=== PATIENT | male | born 1990 | race Caucasian/White ===

== ENCOUNTER 2022-07-29 00:54 | Day surgery (SDC) | payer OTHER, SELFPAY ==
[2022-07-24 09:06] VITALS: BMI 27.2
[2022-07-29 07:32] VITALS: BP 116/69; PULSE 69; RESP 16; TEMP 36.3; O2SAT 99; BMI 26.7
[2022-07-29] MEDS: LACTATED RINGERS 1,000 ML 150 ML IV CONT (07:53)
--- NOTE | 2022-07-29 08:17 | WPDANESEPPF ---
Anes - Initial Pre Proc Eval Procedure: Operation Date: 07/29/22 08:30 Proposed Procedures p Colonoscopy - Kareem Rogers MD Date/Time: 07/29/22 08:17 Surgeon: Kareem Rogers MD Pre Op Diagnosis: melena Patient Data Age: 31 Gender: M Height: 1.98 m Weight: 105.1 kg Last Vital Signs Temp 97.4 F L 07/29/22 07:32 Pulse 69 07/29/22 07:32 Resp 16 07/29/22 07:32 BP 116/69 07/29/22 07:32 Pulse Ox 99 07/29/22 07:32 O2 Del Method Room Air 07/29/22 07:32 Allergies Allergy/AdvReac Type Severity Reaction Status Date / Time amoxicillin Allergy Unknown Unknown Verified 07/29/22 07:32 Home Medications Medication Instructions Recorded Confirmed Type No Home Medications 07/17/22 07/29/22 History Patient hx anesthesia problems: none Family hx anesthesia problems: none Results Review: All pre-operative results and documents have been reviewed as part of the pre-operative evaluation. [facility] Family History Family History (Updated 07/17/22 @ 15:52 by Rebeca Rivas) Father Diabetes mellitus Hypertension Heart disease Mother Alcoholism Social History Social History (Updated 07/17/22 @ 15:56 by Rebeca Rivas) Social History: Caffeine-soda daily Smoking status: Former smoker Tobacco type: e-cigarettes/vaping Additional smoking assessment comments: vapes nicotine, trying to quit Alcohol intake: current Drinks per week: 4 Alcohol use details: [place]/liquor Substance use: never Substance use type: does not use Living arrangements: with friend(s) Additional living arrangements comments: lives with girlfriend Spiritual care concerns: No Agree to blood products: Yes Anes - Eval Final PreProcedure Day of Procedure 07/29/22 08:17 Patient weight: normal Heart: regular rate and rhythm Lungs: clear to auscultation Airway: Mallampati scale class II Neurological: alert and oriented Last oral intake: >/= 8 hours ASA classification: II Emergent: no Anesthetic plan: proceed Anesthesia type and monitoring: general GIVS and standard monitoring Results Review: All pre-operative results and documents have been reviewed as part of the pre-operative evaluation. Informed Consent: The patient's anesthetic plan and its attendant risks and benefits were discussed with the patient/family/POA. Questions were solicited and answers provided to the satisfaction of the patient/family/POA.
--- NOTE | 2022-07-29 08:17 | PM.HPGS ---
History of Present Illness History of Present Illness Consent: Risks, benefits, and alternatives have been discussed and questions answered. Patient agrees to proceed with procedure. Chief complaint: melena Narrative: Sunny Sarah is a 31 year old male with intermittent rectal bleed, never had colonoscopy Review of Systems Constitutional: Constitutional: Denies headache(s) and Denies weakness Eyes: Eyes: Denies blurry vision ENT: Reports Normal hearing present, Denies headache(s) and Denies neck pain Cardiovascular: Cardiovascular: Denies chest pain and Denies dyspnea Respiratory: Respiratory: Denies dyspnea Gastrointestinal: Gastrointestinal: Reports no additional gastrointestinal complaints Genitourinary: Genitourinary: Denies dysuria Musculoskeletal: Musculoskeletal: Denies neck pain Integumentary/Breasts: Skin/Breast: Denies dry skin Neurologic: Reports Normal hearing present, Denies headache(s) and Denies weakness Psychiatric: Psychiatric: Denies anxiety Endocrine: Endocrine: Denies change in body appearance Hematologic/Lymphatic: Hematologic/Lymphatic: Denies easy bleeding Allergic/Immunologic: Allergic/Immunologic: Denies urticaria [facility] Family History Family History (Updated 07/17/22 @ 15:52 by Rebeca Rivas) Father Diabetes mellitus Hypertension Heart disease Mother Alcoholism Social History Social History (Updated 07/17/22 @ 15:56 by Rebeca Rivas) Social History: Caffeine-soda daily Smoking status: Former smoker Tobacco type: e-cigarettes/vaping Additional smoking assessment comments: vapes nicotine, trying to quit Alcohol intake: current Drinks per week: 4 Alcohol use details: [place]/liquor Substance use: never Substance use type: does not use Living arrangements: with friend(s) Additional living arrangements comments: lives with girlfriend Spiritual care concerns: No Agree to blood products: Yes Meds Home Medications and Allergies Home Medications Medication Instructions Recorded Confirmed Type No Home Medications 07/17/22 07/29/22 History Allergies Allergy/AdvReac Type Severity Reaction Status Date / Time amoxicillin Allergy Unknown Unknown Verified 07/29/22 07:32 Vital Signs Vital Signs - 24 hr 07/29/22 07:32 Temperature 97.4 F L Pulse Rate 69 Respiratory Rate 16 Blood Pressure 116/69 Pulse Oximetry 99 Oxygen Delivery Room Air Exam Const: General: comfortable and no acute distress HENMT: General nose exam: Normal nares present Eyes: General: appearance normal, both eyes and all related structures Neck: Neck: no JVD Resp: Auscultation: clear to auscultation bilaterally Cardio: Rate: regular rate Rhythm: regular rhythm GI: Inspection: non-distended GI Palp: Yes Soft to palpation Skin: General skin exam: normal color Neuro: General: gait normal Speech: normal speech Extrem: General: normal to inspection Psych: Mental Status: mental status grossly normal Assessment and Plan Assessment and plan (1) Hematochezia: Code(s): K92.1 - Melena Status: Acute Assessment and Plan: probably perianal but will do colonoscopy
[2022-07-29 08:38] VITALS: BP 106/69; PULSE 72; RESP 18; O2SAT 99
[2022-07-29 08:48] VITALS: BP 109/68; PULSE 70; RESP 20; O2SAT 100
== END 2022-07-29 09:07 | disposition home or self-care (01) ==
PROVIDERS: PCP Emergency Medicine; Visit Provider Internal Medicine Gastroenterology
PROC: 0DJD8ZZ Inspection of Lower Intestinal Tract, Via Natural or Artificial Opening Endoscopic (ICD-10-PCS; CPT 45378; principal; 2022-07-29 08:30)
DX: K92.1 Melena (principal); K64.8 Other hemorrhoids; Z87.891 Personal history of nicotine dependence
CPT/HCPCS: 45378; J2001; J2704; J7120

== ENCOUNTER 2022-08-28 07:41 | Outpatient (CLI) | payer OTHER, SELFPAY ==
--- NOTE | 2022-09-12 16:57 | WPDHOMESLEEP ---
Sleep Study - Home Unattended Date of Study: 08/28/22 Ordering Provider: Oscar Dong MD Interpreting Provider: Stacie Lowery, DO Home Sleep Study Type: Watch PAT Height: 1.96 m Weight: 104.326 kg Body Mass Index: 27.2 Neck Circumference (inches): 16.25 [place]: 9 Reason for Sleep Study Loud snoring, daytime hypersomnia Sleep History The patient is a 31-year-old male with depression, seasonal allergies and current vaping that had a sleep study ordered by his primary care physician for evaluation of sleep apnea. The patient rarely awakens from sleep short of breath. He occasionally awakens at night with heartburn, belching or cough. He constantly snores loud enough that others complain. He occasionally has trouble sleeping when he has a. He denies waking up gasping for air throughout the night. He constantly has breathing problems at night observed by himself or others. He rarely sweats excessively at night. He frequently has heart palpitations or irregular heartbeats during the night. He occasionally falls asleep during the day but never while driving. He rarely experiences loss of muscle tone when extremely. He constantly has trouble at school or work due to sleepiness. He occasionally feels unable to move waking up asleep. He constantly experiences vivid dreamlike scenes upon awakening or falling asleep. He rarely feels afraid of going to sleep he occasionally has nightmares and occasionally remembers his dreams. He constantly has thoughts racing through his mind. He frequently feels sad or depressed. He rarely has anxiety. He frequently has muscular tension occasionally notices parts of his body jerk he constantly kicks during the night he occasionally has crawling and aching feelings in his legs but rarely has leg pain during the night. He rarely grinds his teeth during sleep but never awakens with morning jaw pain he is occasionally bothered by pain during the day but awakened by pain during the night. He frequently wakes up feeling stiff in the morning he constantly wakes up with sore or achy muscles. He constantly wakes up pain in the neck, spine or other drugs. He goes to bed between 1-2 cm on both weekdays and weekends. It takes him 5-10 minutes to fall asleep. He will wake up once at most throughout the night to urinate. He is able fall back asleep within 15 minutes. He wakes up between 9-10 a.m. on both weekdays and weekends. He typically gets 7-8 hours of sleep per night. He will stay in bed no longer than 30 minutes after waking up in the morning. He currently lives with his girlfriend. He does not consume any caffeinated beverages within 2 hours of bedtime. He does not engage in physical exercise before bedtime. He will watch television before falling asleep. He denies taking naps in the afternoon or the evening. He drinks 2 caffeinated beverages per day. He quit smoking cigarettes 4 years ago. He drinks 1 day out of the week and will have a few alcoholic beverages at that time. [facility] Family History Family History Father Diabetes mellitus Hypertension Heart disease Mother Alcoholism Social History Social History Social History: Caffeine-soda daily Smoking status: Former smoker Tobacco type: e-cigarettes/vaping Additional smoking assessment comments: vapes nicotine, trying to quit Alcohol intake: current Drinks per week: 4 Alcohol use details: [place]/liquor Substance use: never Substance use type: does not use Additional living arrangements comments: lives with girlfriend Spiritual care concerns: No Agree to blood products: Yes Medications Home Medications Medication Instructions Recorded Confirmed Type No Home Medications 07/17/22 07/29/22 History Sleep Procedure The sleep study was completed using WatchPAT a technically adequate
[2022-09-12 17:15] VITALS: BMI 27.2
== END 2022-08-29 13:50 | disposition home or self-care (01) ==
LOC: ANHCSM 07:47
PROVIDERS: PCP Emergency Medicine; Visit Provider Emergency Medicine
DX: G47.8 Other sleep disorders (principal); R06.83 Snoring; R06.81 Apnea, not elsewhere classified
CPT/HCPCS: 95800